=== PATIENT | female | born 1955 | race Caucasian/White ===

== ENCOUNTER 2017-08-28 17:05 | Emergency (ER) | payer MEDICARE ==
[~2017-08-28] VITALS: Ht 167.6 cm; Wt 63.5 kg
[~2017-08-28 17:05] MED LIST: ASPIR LOW81 MG PO; ATENOLOL50 MG PO; ATIVAN0.5 MG PO; BACTRIM DS 8001 TA1 PO; CIPROFLOXACIN500 MG PO; COZAAR100 MG PO; COZAAR50 MG PO; DIOVAN80 M1 PO; FLAGYL500 MG PO; HYDROCODONE BIT1 T11 PO; HYDRODIURIL25 MG PO; LEVAQUIN500 M1 IV; LEVOFLOXACIN500 MG PO; MICRO-K10 MEQ PO; PROTONIX40 MG PO; ZOFRAN ODT4 MG SL; Zofran4 MG PO
[2017-08-28 17:10] VITALS: BP 177/79
[2017-08-28] MEDS ORDERED: CIPROFLOXACIN 110 ML OPH (17:38)
== END 2017-08-28 17:59 | disposition home or self-care (01) ==
LOC: ED 17:05
DX: S05.8X2A Other injuries of left eye and orbit, initial encounter (principal); Z79.899 Other long term (current) drug therapy; Z79.82 Long term (current) use of aspirin; X58.XXXA Exposure to other specified factors, initial encounter; Y93.89 Activity, other specified; Y92.89 Other specified places as the place of occurrence of the external cause; Y99.8 Other external cause status

== ENCOUNTER → 2017-10-10 | Outpatient (CLI) | payer MEDICARE ==
[~2017-10-10] MED LIST changes: +CIPROFLOXACIN 110 ML OPH
[2017-10-10 07:39] LABS: BASO # 0.1 10*3/uL (0.0-0.1); BASO % 0.8 % (0.0-1.0); EOS # 0.4 10*3/uL (0.0-0.4); EOS % 6.8 % (1.0-4.0); HEMATOCRIT 34.7 % (37.0-47.0); HEMOGLOBIN 10.8 g/dl (12.0-16.0); LYMPH # 2.3 10*3/uL (1.3-4.4); MEAN CELL VOLUME 94.3 fl (81.0-99.0); MEAN CORPUSCULAR HGB 29.3 pg (27.0-31.0); MEAN CORPUSCULAR HGB CONC 31.1 g/dl (33.0-37.0); MEAN PLATELET VOLUME 8.8 fl (9.6-12.3); MONO # 0.5 10*3/uL (0.1-1.0); MONO % 7.4 % (3.0-9.0); NEUT % 47.7 % (47.0-73.0); PLATELET COUNT AUTOMATED 352 10*3/uL (130-400); RED BLOOD COUNT 3.68 10*6/uL (4.10-5.10); RED CELL DISTRI WIDTH 12.9 % (0-14.5); WHITE BLOOD COUNT 6.3 10*3/uL (4.8-10.8)
[2017-10-10 08:13] LABS: ALBUMIN 3.7 gm/dl (3.1-4.5); BUN 15 mg/dl (7-24); CHLORIDE 106 mmol/L (98-107); CREATININE 0.77 mg/dL (0.55-1.02); POTASSIUM 4.2 mmol/L (3.5-5.1); SGOT/AST 15 IU/L (3-35); SODIUM 141 mmol/L (136-145)
[2017-10-10 08:31] LABS: ALKALINE PHOSPHATASE 47 U/L (45-117); BILIRUBIN, DIRECT < 0.1 mg/dL (0.0-0.2); SGPT/ALT 16 U/L (12-78); TOTAL PROTEIN 7.1 gm/dL (6.4-8.2)
== END | disposition home or self-care (01) ==
LOC: LAB 07:10 → MAMMO 08:00
PROVIDERS: Family Medicine
DX: Z12.31 Encounter for screening mammogram for malignant neoplasm of breast (principal); I10 Essential (primary) hypertension